=== PATIENT | male | born 1950 | race Caucasian/White ===

== ENCOUNTER 2021-08-01 09:57 | Outpatient (RCR) | payer MEDICARE | END 2021-08-07 | LOC: OT 09:57 | PROVIDERS: ATTEND Plastic Surgery | DX: E88.40 Mitochondrial metabolism disorder, unspecified (principal) ==

== ENCOUNTER 2021-08-29 12:51 | Outpatient (RCR) | payer MEDICARE | END 2021-09-06 | LOC: OT 12:51 | PROVIDERS: ATTEND Plastic Surgery | DX: E88.40 Mitochondrial metabolism disorder, unspecified (principal) ==

== ENCOUNTER 2021-09-07 10:57 | Outpatient (RCR) | payer MEDICARE | END 2021-10-07 | LOC: OT 10:57 | PROVIDERS: ATTEND Plastic Surgery | DX: E88.40 Mitochondrial metabolism disorder, unspecified (principal) ==